=== PATIENT | female | born 1960 | race Caucasian/White ===

== ENCOUNTER 2016-09-23 23:30 | Emergency (ER) | payer OTHER ==
[~2016-09-23] VITALS: Ht 154.9 cm; Wt 72.5 kg
[~2016-09-23 23:30] MED LIST: ACET-66 PO; ANTIHYPERTENSIVE PO; BISM262O25 PO; DIABETIC MEDICATION PO; HIGH CHOLESTEROL MED PO; MAG355OR71 PO; [UNRECOGNIZED DRUG - OTHER] PO
[2016-09-24] MEDS ORDERED: ACETAMINOPHEN 500 MG TABLET PO ONE (00:30)
[2016-09-24] MEDS ORDERED: SODIUM CHLORIDE 0.9% 1,000 ML IV ONE (00:30)
[2016-09-24] MEDS ORDERED: ONDANSETRON HCL 4 MG/2 ML VIAL IVP ONE ×2 (00:30→01:15)
[2016-09-24] MEDS ORDERED: BARIUM SULFATE 0.1% SUSPENSION 450 ML BOTTLE PO ONE (00:30)
[2016-09-24] MEDS ORDERED: HYDROmorphone 2 MG/ML SYRINGE IVP ONE (00:30)
[2016-09-24 00:31] LABS: BASOPHILS # (AUTO) 0.03 K/uL (0.00-0.20); BASOPHILS % (AUTO) 0.3 % (0.0-2.0); EOSINOPHILS # (AUTO) 0.01 K/uL (0.00-0.70); EOSINOPHILS % (AUTO) 0.11 % (1.0-6.0); HEMATOCRIT 42.8 % (36-46); HEMOGLOBIN 14.3 g/dL (12.0-16.0); LYMPHOCYTES # (AUTO) 2.3 K/uL (1.0-4.8); LYMPHOCYTES % (AUTO) 22.6 % (22.0-44.0); MEAN CORPUSCULAR HGB CONC 33.4 G/dL (31.0-37.0); MEAN CORPUSCULAR VOLUME 90 fL (80-100); MONOCYTES # (AUTO) 0.5 K/uL (0.1-1.0); MONOCYTES % (AUTO) 5.4 % (2.0-9.0); NEUTROPHILS # (AUTO) 7.1 K/uL (1.8-7.7); NEUTROPHILS % (AUTO) 71.5 % (40.0-70.0); PLATELET COUNT (AUTO) 214 K/uL (150-450); RED BLOOD CELL COUNT(AUTO) 4.78 MIL/uL (4.00-5.20); RED CELL DISTRIBUTION WIDTH 13.4 % (11.5-14.5)
[2016-09-24] MEDS ORDERED: SODIUM CHLORIDE 0.9% 100 ML ONE (00:36)
[2016-09-24] MEDS ORDERED: IOVERSOL 350 MG/ML 100 ML VIAL ONE (00:36)
[2016-09-24 00:41] LABS: ALBUMIN 3.3 g/dL (3.4-5.0); BILIRUBIN,TOTAL 0.4 mg/dL (0.1-1.0); CALCIUM, TOTAL 8.9 mg/dL (8.8-10.5); CREATININE 1.43 mg/dL (0.60-1.30); TOTAL PROTEIN, SERUM 7.8 g/dL (6.4-8.2)
[2016-09-24 00:45] LABS: POTASSIUM 2.9 mmol/L (3.5-5.1)
[2016-09-24] MEDS ORDERED: POTASSIUM CHL 10 MEQ/WATER 50 ML IV ONE (01:15)
[2016-09-24] MEDS ORDERED: IODIXANOL 320 MG/ML 100 ML VIAL ONE (01:21)
[2016-09-24] MEDS ORDERED: POTASSIUM CHLORIDE 10% 40 MEQ/30 ML LIQUID UDCUP PO ONE (04:00)
[2016-09-24 04:30] VITALS: BP 128/80
[2016-09-24 04:41] LABS: APPEARANCE,URINE CLEAR (CLEAR); GLUCOSE, URINE (UA) NEGATIVE (NEGATIVE); KETONES,URINE NEGATIVE (NEGATIVE); LEUKOCYTE ESTERASE ,URINE NEGATIVE (NEGATIVE); OCCULT BLOOD,URINE LARGE (NEGATIVE); PH,URINE 5.5 (5.0-8.0); PROTEIN,URINE POS 1+ (NEGATIVE)
[2016-09-24 04:48] LABS: ADD UA MICROSCOPIC YES
[2016-09-24 05:09] LABS: SQUAMOUS EPITHELIAL CELL,UR Few /LPF (None Seen); WBC,URINE 0-2 /HPF (0-5)
== END 2016-09-24 05:10 | disposition home or self-care (01) ==
LOC: EMS 23:31
DX: K52.9 Noninfective gastroenteritis and colitis, unspecified (principal); E86.0 Dehydration; E11.65 Type 2 diabetes mellitus with hyperglycemia; E87.6 Hypokalemia; I10 Essential (primary) hypertension; E78.00 Pure hypercholesterolemia, unspecified
CPT/HCPCS: 36415; 71010; 74177; 80053; 81001; 83690; 84484; 85025; 93005; 96361; 96374; 96375; 96376; 99285; J1170; J2405; J3480; J7050; Q9967; Z7610

== ENCOUNTER 2017-04-12 20:21 | Emergency (ER) | payer OTHER ==
[~2017-04-12] VITALS: Ht 157.5 cm; Wt 63.6 kg
[2017-04-12] MEDS ORDERED: ACETAMINOPHEN 325 MG TABLET PO ONE (20:30)
[2017-04-12] MEDS ORDERED: KETOROLAC TROMETHAMINE 60 MG/2 ML VIAL IM ONE (21:00)
[2017-04-12 21:56] LABS: INFLUENZA TYPE A NEGATIVE FOR TYPE A (NEGATIVE); INFLUENZA TYPE B NEGATIVE FOR TYPE B (NEGATIVE)
[2017-04-12 22:08] VITALS: BP 141/92
== END 2017-04-12 22:14 | disposition home or self-care (01) ==
LOC: EMS 20:26
DX: B34.9 Viral infection, unspecified (principal); E78.00 Pure hypercholesterolemia, unspecified; I10 Essential (primary) hypertension; E11.9 Type 2 diabetes mellitus without complications
CPT/HCPCS: 87804; 96372; 99284; J1885

== ENCOUNTER 2017-05-04 13:54 | Emergency (ER) | payer OTHER ==
[~2017-05-04] VITALS: Ht 165.1 cm; Wt 66.8 kg
[2017-05-04] MEDS ORDERED: FLUT16H NASAL (14:34)
[2017-05-04] MEDS ORDERED: IPRA3S NASAL (14:34)
[2017-05-04] MEDS ORDERED: ATOR20TA86 PO (14:34)
[2017-05-04] MEDS ORDERED: LOSA50TA37 PO (14:34)
[2017-05-04] MEDS ORDERED: ASPI-556 PO (14:34)
[2017-05-04] MEDS ORDERED: KETO5DRO6 OU (14:34)
[2017-05-04] MEDS ORDERED: TRAZ-144 PO (14:34)
[2017-05-04] MEDS ORDERED: LORA10TA7 PO (14:34)
[2017-05-04] MEDS ORDERED: METO25 PO (14:34)
[2017-05-04] MEDS ORDERED: METF500T4 PO (14:34)
[2017-05-04 15:12] LABS: GLUCOSE,POINT OF CARE 132 MG/DL (70-110)
[2017-05-04 17:50] VITALS: BP 133/77
[2017-05-04] MEDS ORDERED: PredniSONE 20 MG TABLET PO ONE (18:00)
[2017-05-04] MEDS ORDERED: ZINC OXIDE 20% 30 GM OINTMENT TP ONE (18:00)
== END 2017-05-04 18:15 | disposition home or self-care (01) ==
LOC: EMS 13:55
DX: L25.9 Unspecified contact dermatitis, unspecified cause (principal); F41.9 Anxiety disorder, unspecified; E11.9 Type 2 diabetes mellitus without complications; E78.00 Pure hypercholesterolemia, unspecified; I10 Essential (primary) hypertension; Z79.82 Long term (current) use of aspirin
CPT/HCPCS: 82962; 99283; J7512

== ENCOUNTER 2017-05-29 18:42 | Inpatient (IN) | payer OTHER ==
[~2017-05-29] VITALS: Ht 142.2 cm; Wt 64.2 kg
[~2017-05-29 18:42] MED LIST changes: -ACET-66 PO; -ANTIHYPERTENSIVE PO; +ASPI-556 PO; +ATOR20TA86 PO; -BISM262O25 PO; -DIABETIC MEDICATION PO; +FLUT16H NASAL; -HIGH CHOLESTEROL MED PO; +IPRA3S NASAL; +KETO5DRO6 OU; +LORA10TA7 PO; +LOSA50TA37 PO; -MAG355OR71 PO; +METF500T4 PO; +METO25 PO; +TRAZ-144 PO; -[UNRECOGNIZED DRUG - OTHER] PO
[2017-05-29] MEDS ORDERED: BARIUM SULFATE 0.1% SUSPENSION 450 ML BOTTLE ONE (19:00)
[2017-05-29 19:13] LABS: BASOPHILS % (AUTO) 0.3 % (0.0-2.0); EOSINOPHILS % (AUTO) 0.6 % (1.0-6.0); HEMATOCRIT 39.5 % (36-46); HEMOGLOBIN 13.7 g/dL (12.0-16.0); LYMPHOCYTES # (AUTO) 2.9 K/uL (1.0-4.8); LYMPHOCYTES % (AUTO) 24.9 % (22.0-44.0); MEAN CORPUSCULAR HEMOGLOBIN 30.2 pg (26.0-34.0); MEAN CORPUSCULAR HGB CONC 34.6 G/dL (31.0-37.0); MEAN CORPUSCULAR VOLUME 87 fL (80-100); MONOCYTES # (AUTO) 0.5 K/uL (0.1-1.0); MONOCYTES % (AUTO) 4.2 % (2.0-9.0); NEUTROPHILS # (AUTO) 8.2 K/uL (1.8-7.7); PLATELET COUNT (AUTO) 256 K/uL (150-450); RED BLOOD CELL COUNT(AUTO) 4.52 MIL/uL (4.00-5.20); RED CELL DISTRIBUTION WIDTH 12.9 % (11.5-14.5)
[2017-05-29] MEDS ORDERED: ONDANSETRON HCL 4 MG/2 ML VIAL IVP ONE ×2 (19:15→22:45)
[2017-05-29] MEDS ORDERED: BARIUM SULFATE 0.1% SUSPENSION 450 ML BOTTLE PO ONE (19:15)
[2017-05-29] MEDS ORDERED: DONNATAL/LIDOCAINE/MAALOX 55 ML BOTTLE PO ONE (19:15)
[2017-05-29 19:31] LABS: ANION GAP 12 mmol/L (8-16); CALCIUM, TOTAL 9.6 mg/dL (8.8-10.5); CARBON DIOXIDE 26 mmol/L (22-29); CHLORIDE 101 mmol/L (98-107); CREATININE 0.86 mg/dL (0.60-1.30); GLOMERULAR FILTR. RATE CALC > 60 mL/min (>60); GLUCOSE,RANDOM 182 mg/dL (70-110); POTASSIUM 3.7 mmol/L (3.5-5.1); SODIUM SERUM 139 mmol/L (136-145); UREA NITROGEN, BLOOD 19 mg/dL (7-18)
[2017-05-29 19:37] LABS: ALANINE AMINOTRANSFERASE 314 U/L (12-78); ALBUMIN 3.8 g/dL (3.4-5.0); ALKALINE PHOSPHATASE 163 U/L (46-116); ASPARTATE AMINOTRANSFERASE 56 U/L (15-37); BILIRUBIN,TOTAL 0.4 mg/dL (0.1-1.0); LIPASE 201 U/L (73-393)
[2017-05-29 19:49] LABS: INR 0.9 (0.9-1.1); PROTHROMBIN TIME 9.9 SEC (9.4-11.6)
[2017-05-29] MEDS ORDERED: SODIUM CHLORIDE 0.9% 100 ML ONE (20:03)
[2017-05-29] MEDS ORDERED: IOVERSOL 320 MG/ML 100 ML VIAL ONE (20:03)
[2017-05-29 21:00] LABS: APPEARANCE,URINE CLEAR (CLEAR); BILIRUBIN,URINE NEGATIVE (NEGATIVE); GLUCOSE, URINE (UA) NEGATIVE (NEGATIVE); KETONES,URINE TRACE mg/dL (NEGATIVE); LEUKOCYTE ESTERASE ,URINE NEGATIVE (NEGATIVE); NITRATE,URINE NEGATIVE (NEGATIVE); OCCULT BLOOD,URINE NEGATIVE (NEGATIVE); PH,URINE 7.5 (5.0-8.0); PROTEIN,URINE NEGATIVE (NEGATIVE); UROBILINOGEN,URINE 0.2 mg/dL (<=1.0)
[2017-05-29] MEDS ORDERED: MORPHINE SULFATE 4 MG/ML SYRINGE IVP ONE ×2 (21:00→22:45)
[2017-05-29] MEDS ORDERED: BISACODYL 10 MG RECTAL RECTAL SUPPOSITORY PR PRN (22:45)
[2017-05-29] MEDS ORDERED: ALBUTEROL SULFATE 2.5 MG/0.5 ML NEB SOLUTION NEB PRN (22:45)
[2017-05-29] MEDS ORDERED: MAGNESIUM HYDROXIDE SUSPENSION 30 ML UDCUP PO PRN (22:45)
[2017-05-29] MEDS ORDERED: IPRATROPIUM BROMIDE 0.5 MG/2.5 ML NEB SOLUTION NEB PRN (22:45)
[2017-05-29] MEDS ORDERED: ACETAMINOPHEN 325 MG TABLET PO PRN ×2 (22:45→23:00)
[2017-05-29] MEDS ORDERED: ZOLPIDEM TARTRATE 5 MG TABLET PO PRN (22:45)
[2017-05-29] MEDS ORDERED: OxyCODONE HCL/ACETAMINOPHEN 5-325 MG TABLET PO PRN (22:45)
[2017-05-29] MEDS ORDERED: MORPHINE SULFATE 2 MG/ML SYRINGE IVP PRN (23:00)
[2017-05-29] MEDS ORDERED: 0.9% SODIUM CHLORIDE 10 ML SYRINGE IVP PRN (23:00)
[2017-05-29] MEDS ORDERED: ONDANSETRON HCL 4 MG/2 ML VIAL IVP PRN (23:00)
[2017-05-30 00:19] VITALS: BP 106/65
[2017-05-30] MEDS: DEXTROSE 5%-0.45% SODIUM CHL 1,000 ML IV SCH ×3 (00:42→18:05)
[2017-05-30] MEDS: ONDANSETRON HCL 4 MG/2 ML VIAL IVP PRN ×2 (02:29→11:45)
[2017-05-30] MEDS ORDERED: MORPHINE SULFATE 2 MG/ML SYRINGE IVP ONE (05:15)
[2017-05-30 05:24] VITALS: BP 149/73
[2017-05-30] MEDS ORDERED: MORPHINE SULFATE 4 MG/ML SYRINGE IVP PRN (05:30)
[2017-05-30] MEDS ORDERED: DEXTROSE 50%-WATER 25 GM/50 ML SYRINGE IVP PRN (05:30)
[2017-05-30] MEDS: INSULIN ASPART 100 UNITS/ML SQ PRN ×2 (05:52→12:30)
[2017-05-30 06:41] LABS: HEMATOCRIT 41.5 % (36-46); HEMOGLOBIN 14.3 g/dL (12.0-16.0); MEAN CORPUSCULAR HEMOGLOBIN 30.6 pg (26.0-34.0); MEAN CORPUSCULAR HGB CONC 34.5 G/dL (31.0-37.0); MEAN CORPUSCULAR VOLUME 89 fL (80-100); PLATELET COUNT (AUTO) 248 K/uL (150-450); RED BLOOD CELL COUNT(AUTO) 4.68 MIL/uL (4.00-5.20); RED CELL DISTRIBUTION WIDTH 13.5 % (11.5-14.5)
[2017-05-30 07:06] LABS: ALBUMIN 3.6 g/dL (3.4-5.0); BILIRUBIN,TOTAL 0.5 mg/dL (0.1-1.0); CALCIUM, TOTAL 9.3 mg/dL (8.8-10.5); CREATININE 0.99 mg/dL (0.60-1.30); MAGNESIUM 2.3 mg/dL (1.80-2.40); PHOSPHORUS 4.3 mg/dL (2.5-4.9); POTASSIUM 4.5 mmol/L (3.5-5.1)
[2017-05-30 07:12] LABS: HEMOGLOBIN A1C 6.9 % (4.5-6.2)
[2017-05-30 07:16] VITALS: BP 138/80
[2017-05-30 07:28] LABS: GLUCOMETER DEV NAME(LOC) 6N 2D; GLUCOSE,POINT OF CARE 307 MG/DL (70-110)
[2017-05-30] MEDS ORDERED: MetFORMIN HCL 500 MG TABLET PO SCH (08:00)
[2017-05-30] MEDS ORDERED: ATORVASTATIN CALCIUM 20 MG TABLET PO SCH (09:00)
[2017-05-30] MEDS ORDERED: LORATADINE 10 MG TABLET PO SCH (09:00)
[2017-05-30] MEDS: METOPROLOL TARTRATE 25 MG TABLET PO SCH ×2 (09:00→20:46)
[2017-05-30] MEDS ORDERED: LOSARTAN POTASSIUM 50 MG TABLET PO SCH (09:00)
[2017-05-30] MEDS ORDERED: ASPIRIN 81 MG EC TABLET PO SCH (09:00)
[2017-05-30 09:38] LABS: BAND NEUTROPHILS % (MANUAL) 19 % (1-5); LYMPHOCYTES % (MANUAL) 5 % (22-44); MONOCYTES % (MANUAL) 6 % (2-9); SEGMENTED NEUTROPHILS % 70 % (40-70)
[2017-05-30] MEDS: PANTOPRAZOLE SODIUM 40 MG/VIAL IVP SCH (09:53)
[2017-05-30] MEDS: FLUTICASONE PROPIONATE 50 MCG/SPRAY 16 GM NASAL SPRAY NASAL SCH (09:53)
[2017-05-30 12:31] VITALS: BP 139/78
[2017-05-30 15:41] VITALS: BP 143/86
[2017-05-30] MEDS: HEPARIN SODIUM,PORCINE 5,000 UNITS/ML VIAL SQ SCH (18:01)
[2017-05-30 19:28] LABS: GLUCOMETER DEV NAME(LOC) 6N 1E; GLUCOSE,POINT OF CARE 262 MG/DL (70-110)
[2017-05-30 19:28] LABS: GLUCOMETER DEV NAME(LOC) 6N 1E; GLUCOSE,POINT OF CARE 222 MG/DL (70-110)
[2017-05-30 20:01] VITALS: BP 148/83
[2017-05-30] MEDS: MORPHINE SULFATE 2 MG/ML SYRINGE IVP PRN (20:07)
[2017-05-30] MEDS ORDERED: TraZODone HCL 50 MG TABLET PO SCH (21:00)
[2017-05-31] VITALS (7 sets, daily range): BP systolic 123–156; BP diastolic 73–88
[2017-05-31 02:17] LABS: GLUCOMETER DEV NAME(LOC) 6N 2D; GLUCOSE,POINT OF CARE 116 MG/DL (70-110)
[2017-05-31] MEDS: DEXTROSE 5%-0.45% SODIUM CHL 1,000 ML IV SCH ×2 (04:20→18:05)
[2017-05-31] MEDS: MORPHINE SULFATE 2 MG/ML SYRINGE IVP PRN ×3 (04:55→15:00)
[2017-05-31] MEDS: INSULIN ASPART 100 UNITS/ML SQ PRN ×3 (05:48→18:15)
[2017-05-31 06:30] LABS: BASOPHILS % (AUTO) 0.1 % (0.0-2.0); EOSINOPHILS % (AUTO) 0.9 % (1.0-6.0); HEMATOCRIT 36.4 % (36-46); HEMOGLOBIN 12.5 g/dL (12.0-16.0); LYMPHOCYTES % (AUTO) 32.9 % (22.0-44.0); MEAN CORPUSCULAR HEMOGLOBIN 30.5 pg (26.0-34.0); MEAN CORPUSCULAR HGB CONC 34.3 G/dL (31.0-37.0); MEAN CORPUSCULAR VOLUME 89 fL (80-100); MONOCYTES # (AUTO) 0.7 K/uL (0.1-1.0); MONOCYTES % (AUTO) 7.4 % (2.0-9.0); NEUTROPHILS # (AUTO) 5.4 K/uL (1.8-7.7); NEUTROPHILS % (AUTO) 58.7 % (40.0-70.0); PLATELET COUNT (AUTO) 222 K/uL (150-450); RED CELL DISTRIBUTION WIDTH 13.4 % (11.5-14.5)
[2017-05-31 06:53] LABS: GLUCOMETER DEV NAME(LOC) 6N 2D; GLUCOSE,POINT OF CARE 182 MG/DL (70-110)
[2017-05-31 07:15] LABS: ALANINE AMINOTRANSFERASE 176 U/L (12-78); ALBUMIN 2.8 g/dL (3.4-5.0); ALKALINE PHOSPHATASE 111 U/L (46-116); ANION GAP 9 mmol/L (8-16); ASPARTATE AMINOTRANSFERASE 29 U/L (15-37); BILIRUBIN,TOTAL 0.5 mg/dL (0.1-1.0); CALCIUM, TOTAL 8.2 mg/dL (8.8-10.5); CARBON DIOXIDE 27 mmol/L (22-29); CHLORIDE 103 mmol/L (98-107); CREATININE 0.84 mg/dL (0.60-1.30); GLOMERULAR FILTR. RATE CALC > 60 mL/min (>60); GLUCOSE,RANDOM 152 mg/dL (70-110); POTASSIUM 3.5 mmol/L (3.5-5.1); SODIUM SERUM 139 mmol/L (136-145); TOTAL PROTEIN, SERUM 6.8 g/dL (6.4-8.2); UREA NITROGEN, BLOOD 16 mg/dL (7-18)
[2017-05-31] MEDS: HEPARIN SODIUM,PORCINE 5,000 UNITS/ML VIAL SQ SCH ×4 (08:00→23:25)
[2017-05-31] MEDS: METOPROLOL TARTRATE 25 MG TABLET PO SCH ×2 (09:00→20:14)
[2017-05-31] MEDS: FLUTICASONE PROPIONATE 50 MCG/SPRAY 16 GM NASAL SPRAY NASAL SCH (10:06)
[2017-05-31] MEDS: PANTOPRAZOLE SODIUM 40 MG/VIAL IVP SCH (10:06)
[2017-05-31 11:43] LABS: GLUCOMETER DEV NAME(LOC) 6N 2D; GLUCOSE,POINT OF CARE 168 MG/DL (70-110)
[2017-06-01 04:32] VITALS: BP 130/76
[2017-06-01] MEDS: INSULIN ASPART 100 UNITS/ML SQ PRN (06:03)
[2017-06-01] MEDS: DEXTROSE 5%-0.45% SODIUM CHL 1,000 ML IV SCH (06:03)
[2017-06-01 06:49] LABS: GLUCOMETER DEV NAME(LOC) 6N 2D; GLUCOSE,POINT OF CARE 145 MG/DL (70-110)
[2017-06-01 06:49] LABS: GLUCOMETER DEV NAME(LOC) 6N 2D; GLUCOSE,POINT OF CARE 94 MG/DL (70-110)
[2017-06-01] MEDS: FLUTICASONE PROPIONATE 50 MCG/SPRAY 16 GM NASAL SPRAY NASAL SCH (08:22)
[2017-06-01] MEDS: PANTOPRAZOLE SODIUM 40 MG/VIAL IVP SCH (08:23)
[2017-06-01] MEDS: METOPROLOL TARTRATE 25 MG TABLET PO SCH (08:23)
[2017-06-01] MEDS: HEPARIN SODIUM,PORCINE 5,000 UNITS/ML VIAL SQ SCH (08:23)
[2017-06-01 08:47] VITALS: BP 123/89
[2017-06-01 11:40] VITALS: BP 135/78
[2017-06-01 21:02] LABS: GLUCOMETER DEV NAME(LOC) 6N 1E; GLUCOSE,POINT OF CARE 130 MG/DL (70-110)
[2017-06-01 21:02] LABS: GLUCOMETER DEV NAME(LOC) 6N 1E; GLUCOSE,POINT OF CARE 146 MG/DL (70-110)
== END 2017-06-01 12:45 | disposition home or self-care (01) | DRG 247 ==
LOC: EMS 18:43 → 6N 21:57
PROVIDERS: ADMIT Internal Medicine; ATTEND Internal Medicine
DX: K56.609 Unspecified intestinal obstruction, unspecified as to partial versus complete obstruction (principal); E11.65 Type 2 diabetes mellitus with hyperglycemia; I10 Essential (primary) hypertension; E66.9 Obesity, unspecified; E78.00 Pure hypercholesterolemia, unspecified; E78.5 Hyperlipidemia, unspecified; K21.9 Gastro-esophageal reflux disease without esophagitis; Z22.322 Carrier or suspected carrier of Methicillin resistant Staphylococcus aureus; Z68.31 Body mass index [BMI] 31.0-31.9, adult; Z79.82 Long term (current) use of aspirin; Z79.899 Other long term (current) drug therapy; Z98.891 History of uterine scar from previous surgery
CPT/HCPCS: 74018; 74019; 74177; 74250; 82962; 83036; 83735; 84100; 87081; 93005; 96374; 96376; 99285; C9113; J1644; J2270; J2405; J7050

== ENCOUNTER 2024-07-12 11:22 | Inpatient (IN) | payer OTHER ==
[~2024-07-12] VITALS: Ht 162.6 cm; Wt 62.0 kg
[~2024-07-12 11:22] MED LIST changes: +ACET-2247 PO; +ATOR20TA PO; -ATOR20TA86 PO; +DOCU-385 PO; -FLUT16H NASAL; +IPRA30SP2 NASAL; -IPRA3S NASAL; +KETO-99 OU; -KETO5DRO6 OU; -LORA10TA7 PO; +LOSA-382 PO; -LOSA50TA37 PO; +METF-1211 PO; -METF500T4 PO; +MULT-248 PO; -TRAZ-144 PO
[2024-07-12] MEDS ORDERED: METF-446 PO (11:32)
[2024-07-12] MEDS ORDERED: SERT-438 PO (11:32)
[2024-07-12] MEDS ORDERED: LOSA100T59 PO (11:32)
[2024-07-12] MEDS ORDERED: ASPI-1444 PO (11:32)
[2024-07-12] MEDS ORDERED: AMLO10TA55 PO (11:32)
[2024-07-12] MEDS ORDERED: CHOL200074 PO (11:32)
[2024-07-12] MEDS ORDERED: EMPA25TA3 PO (11:32)
[2024-07-12] MEDS ORDERED: HYDR25TA PO (11:32)
[2024-07-12] MEDS ORDERED: ATOR-2 PO (11:32)
[2024-07-12] MEDS ORDERED: CETI10TA58 PO (12:07)
[2024-07-12 12:30] LABS: BASOPHILS % (AUTO) 0.3 % (0.0-2.0); EOSINOPHILS % (AUTO) 0.9 % (1.0-6.0); HEMATOCRIT 43.8 % (36-46); HEMOGLOBIN 14.7 g/dL (12.0-16.0); LYMPHOCYTES # (AUTO) 2.4 K/uL (1.0-4.8); LYMPHOCYTES % (AUTO) 37.9 % (22.0-44.0); MEAN CORPUSCULAR HEMOGLOBIN 30.1 pg (26.0-34.0); MEAN CORPUSCULAR HGB CONC 33.5 G/dL (31.0-37.0); MEAN CORPUSCULAR VOLUME 90 fL (80-100); MONOCYTES # (AUTO) 0.5 K/uL (0.1-1.0); MONOCYTES % (AUTO) 7.4 % (2.0-9.0); NEUTROPHILS # (AUTO) 3.4 K/uL (1.8-7.7); NEUTROPHILS % (AUTO) 53.5 % (40.0-70.0); PLATELET COUNT (AUTO) 234 K/uL (150-450); RED BLOOD CELL COUNT(AUTO) 4.88 MIL/uL (4.00-5.20); WHITE BLOOD COUNT (AUTO) 6.4 K/uL (4.5-11.0)
[2024-07-12 12:35] LABS: ANION GAP 8 mmol/L (8-16); CALCIUM, TOTAL 9.8 mg/dL (8.8-10.5); CARBON DIOXIDE 28 mmol/L (22-29); CHLORIDE 104 mmol/L (98-107); CREATININE 0.76 mg/dL (0.60-1.30); GLOMERULAR FILTR. RATE CALC > 60 mL/min (>60); GLUCOSE,RANDOM 113 mg/dL (70-110); POTASSIUM 4.5 mmol/L (3.5-5.1); SODIUM SERUM 140 mmol/L (136-145); UREA NITROGEN, BLOOD 14 mg/dL (7-18)
[2024-07-12 12:46] LABS: PROTHROMBIN TIME 10.6 SEC (9.4-11.6); TROPONIN I-HIGH SENSITIVITY 4 ng/L (<51)
[2024-07-12] MEDS: ACETAMINOPHEN 325 MG TABLET PO ONE (13:19)
[2024-07-12] MEDS: SODIUM CHLORIDE 0.9% 1,000 ML IV ONE (13:20)
[2024-07-12] MEDS: CloNIDine HCL 0.1 MG TABLET PO ONE (13:20)
[2024-07-12] MEDS ORDERED: CETIRIZINE HCL 10 MG TABLET PO PRN (16:45)
[2024-07-12] MEDS ORDERED: DEXTROSE 50%-WATER 25 GM/50 ML SYRINGE IVP PRN (16:45)
[2024-07-12] MEDS ORDERED: INSULIN LISPRO 100 UNITS/ML SQ PRN (16:45)
[2024-07-12] MEDS: LOSARTAN POTASSIUM 50 MG TABLET PO SCH (20:15)
[2024-07-12 20:41] LABS: APPEARANCE,URINE CLEAR (CLEAR); BILIRUBIN,URINE NEGATIVE (NEGATIVE); COLOR,URINE LIGHT YELLOW (YELLOW); GLUCOSE, URINE (UA) >=1000 mg/dL (NEGATIVE); KETONES,URINE NEGATIVE (NEGATIVE); LEUKOCYTE ESTERASE ,URINE TRACE (NEGATIVE); NITRATE,URINE POSITIVE (NEGATIVE); OCCULT BLOOD,URINE NEGATIVE (NEGATIVE); PH,URINE 5.5 (5.0-8.0); PROTEIN,URINE NEGATIVE (NEGATIVE); SPECIFIC GRAVITIY, URINE 1.024 (1.003-1.030); UROBILINOGEN,URINE <=1.0 mg/dL (<=1.0)
[2024-07-12 21:24] LABS: BACTERIA,URINE Moderate /HPF (None Seen); RBC,URINE 0-2 /HPF (0-2); SQUAMOUS EPITHELIAL CELL,UR Few /LPF (None Seen)
[2024-07-12 22:56] VITALS: BP 142/72; PULSE 68; RESP 18; TEMP 98.2; O2SAT 96
[2024-07-13] MEDS ORDERED: SODIUM CHLORIDE 0.9% 250 ML IV ONE (00:18)
[2024-07-13] MEDS: CefTRIAXone 1 GM/DEXTROSE 50 ML IV ONE (00:20)
[2024-07-13 00:36] LABS: GLUCOMETER DEV NAME(LOC) 5N.1D; GLUCOSE,POINT OF CARE 134 MG/DL (70-110)
[2024-07-13 06:33] VITALS: BP 129/62; PULSE 67; RESP 16; TEMP 97.7; O2SAT 99
[2024-07-13 07:36] LABS: GLUCOMETER DEV NAME(LOC) 5N.1D; GLUCOSE,POINT OF CARE 109 MG/DL (70-110)
[2024-07-13 08:00] VITALS: BP 138/76; PULSE 82; RESP 18; TEMP 98.1; O2SAT 95
[2024-07-13] MEDS ORDERED: AmLODIPine BESYLATE 10 MG TABLET PO SCH (09:00)
[2024-07-13] MEDS: SERTRALINE HCL 50 MG TABLET PO SCH (09:36)
[2024-07-13] MEDS: ATORVASTATIN CALCIUM 40 MG TABLET PO SCH (09:36)
[2024-07-13] MEDS: CHOLECALCIFEROL (VIT D3) 1,000 UNITS [25 MCG] TABLET PO SCH (09:36)
[2024-07-13] MEDS: ASPIRIN 81 MG DR TABLET PO SCH (09:36)
[2024-07-13] MEDS: HYDROCHLOROTHIAZIDE 25 MG TABLET PO SCH (09:37)
[2024-07-13] MEDS: EMPAGLIFLOZIN 25 MG TABLET PO SCH (09:37)
[2024-07-13] MEDS: AmLODIPine BESYLATE 5 MG TABLET PO SCH (09:37)
[2024-07-13 12:00] VITALS: BP 140/78; PULSE 70; RESP 18; TEMP 98.1; O2SAT 96
[2024-07-13] MEDS ORDERED: MECL-302 PO (14:22)
[2024-07-13] MEDS ORDERED: CEPH-558 PO (14:22)
[2024-07-13 15:41] LABS: GLUCOMETER DEV NAME(LOC) 5N.1D; GLUCOSE,POINT OF CARE 128 MG/DL (70-110)
[2024-07-13] MEDS: CefTRIAXone 1 GM/DEXTROSE 50 ML IV SCH (16:20)
[2024-07-13] MEDS ORDERED: LOSARTAN POTASSIUM 50 MG TABLET PO SCH (21:00)
[2024-07-14] MEDS ORDERED: SULF-261 PO (17:32)
== END 2024-07-13 18:10 | disposition home or self-care (01) | DRG 48 ==
LOC: EMS 11:27 → EDH 16:41 → 5S 22:37
PROVIDERS: ADMIT Hospitalist; ATTEND Hospitalist
DX: G90.89 Other disorders of autonomic nervous system (principal); E11.9 Type 2 diabetes mellitus without complications; I10 Essential (primary) hypertension; N39.0 Urinary tract infection, site not specified; E78.5 Hyperlipidemia, unspecified; Z82.49 Family history of ischemic heart disease and other diseases of the circulatory system; Z83.3 Family history of diabetes mellitus; Z88.8 Allergy status to other drugs, medicaments and biological substances
CPT/HCPCS: 70450; 71045; 80048; 81001; 82962; 83880; 84484; 85025; 85610; 85730; 87040; 87077; 87086; 87186; 93005; 96360; 99285; J0696; J7030; J7050; 36415-L1; 36415-TC